=== PATIENT | female | born 1945 | race Caucasian/White ===

== ENCOUNTER → 2018-01-29 09:00 | Outpatient (CLI) | payer MEDICARE, SELFPAY | PROVIDERS: PCP Family Medicine; Visit Provider Urology | DX: C67.9 Malignant neoplasm of bladder, unspecified (principal) | CPT/HCPCS: 99213 ==

== ENCOUNTER 2018-03-23 08:59 | Outpatient (CLI) | payer MEDICARE, SELFPAY ==
[2018-03-23 11:17] LABS: TSH (W/Ref FT4) 0.66 uIU/mL (0.358-3.74)
== END 2018-03-23 09:19 ==
PROVIDERS: PCP Family Medicine; Visit Provider Family Medicine
DX: I10 Essential (primary) hypertension (principal); E03.9 Hypothyroidism, unspecified
CPT/HCPCS: 36415; 84443

== ENCOUNTER 2018-04-13 13:38 | Outpatient (CLI) | payer MEDICARE, SELFPAY ==
[2018-04-13 14:37] LABS: Anion Gap 4.9 mmol/L (3-11); CO2 34.1 mmol/L (21.0-32.0); Chloride 100 mmol/L (98-107); Sodium 139 mmol/L (136-145)
== END 2018-04-13 13:58 ==
PROVIDERS: PCP Family Medicine; Visit Provider Otolaryngology Otolaryngology/Facial Plastic Surgery
DX: R42 Dizziness and giddiness (principal); H93.13 Tinnitus, bilateral
CPT/HCPCS: 36415; 80051

== ENCOUNTER 2018-04-20 10:50 | Day surgery (SDC) | payer MEDICARE, SELFPAY ==
[2018-04-20 11:11] VITALS: BP 115/75; PULSE 75; RESP 16; TEMP 36.7; O2SAT 97
--- NOTE | 2018-04-20 11:13 | HPE_ITS ---
Date of service: 04/20/18 Time of Service: 11:32 Assessment and Plan (1) Urothelial carcinoma of bladder: Current visit: No Status: Chronic For surveillance cystoscopy and possible TURBT History of Present Illness Chief Complaint: History Bladder Cancer Narrative: This is a 73 year old woman who was found to have urothelial cell carcinoma of the bladder. Her initial diagnosis was 12/2017. She presents for surveillance cystoscopy. She has no gross hematuria. She quit smoking @ 25 years ago. Review of Systems Constitutional Denies chills and Denies fever(s) Eyes Denies change in vision ENT Denies sore throat Cardiovascular Denies chest pain and Denies palpitations Respiratory Denies cough and Denies hemoptysis Gastrointestinal Denies nausea and Denies vomiting Musculoskeletal Reports arthralgias Neurologic Denies seizure-like activity and Denies tremor(s) Endocrine Denies palpitations Hematologic/Lymphatic Denies easy bleeding and Denies easy bruising PFSH Family History Mother No problems noted. Father Heart disease Brother No problems noted. Brother Neoplasm Grandfather Aneurysm Heart disease Grandfather No problems noted. Grandmother No problems noted. Grandmother No problems noted. Son No problems noted. Daughter No problems noted. Daughter No problems noted. Medical History Impaired fasting glucose (Chronic 09/17/12) Urothelial carcinoma of bladder (Chronic 01/29/18) Subacute maxillary sinusitis (Chronic 01/20/17) Shoulder pain (Chronic 05/22/04) Increased body mass index (Chronic) Hypothyroidism (Chronic 10/27/08) Hyperlipidemia (Chronic) Gout (Chronic 09/17/12) Essential hypertension (Chronic 04/16/13) Bladder cancer Gout Hyperlipidemia Hypothyroidism Shoulder pain Social History household members: spouse current occupational status: retired pets and animals: Yes pets and animals: dog(s) frequency: 5-6 times per week duration: 15-30 minutes/day Smoking/Tobacco Use Status: Former Tobacco Use how long ago did patient quit smokin YRS AGO alcohol intake: never substance use type: does not use lorena/cheondoism: Pentecostalism special lorena needs: No Surgical History ACHILLOTENOTOMY (~2006) Cholecystectomy (~1967) Colonoscopy - IV Sedation Colonoscopy - MAC (02/12/18) Cystoscopy w/ Bladder Bx (01/19/18) Meds Home Medications Medication Instructions Recorded Confirmed Type triamcinolone acetonide 1 adam TOPICAL BID PRN #3 09/16/12 04/20/18 History docusate sodium [Colace] 100 mg PO DAILY 01/09/18 04/20/18 History omega 0-ltr-rgb-fish oil 1 cap PO DAILY 01/09/18 04/20/18 History citalopram 20 mg tablet 20 mg PO DAILY #90 tab-cap 03/23/18 04/20/18 Rx levothyroxine 150 mcg tablet 150 mcg PO DAILY #90 tab 03/23/18 04/20/18 Rx triamterene-hydrochlorothiazid 1 tab PO DAILY 04/16/18 04/20/18 History Allergies Allergy/AdvReac Type Severity Reaction Status Date / Time Penicillins Allergy Unknown RASH Unverified 04/20/18 11:17 Exam Const General: cooperative Neck Neck: supple Resp Auscultation: diminished lung sounds Cardio Rate: regular rate Rhythm: regular rhythm GI Palpation: soft and no masses Psych Mental Status: mental status grossly normal
[2018-04-20] MEDS: Sulfameth/Trimeth DS TAB 1 TAB PO (11:22)
[2018-04-20] MEDS: Lactated Ringers 1,000 ML 80 ML IV (11:37)
[2018-04-20] MEDS: Lidocaine 2% Jelly 6 ML SYR (12:01)
--- NOTE | 2018-04-20 12:12 | PDOC.DSDIS_ITS ---
Discharge Plan Disposition Patient Disposition: HOME Condition: Stable Discharge Details Reason For Visit: BLADDER CA Attending Provider: Jan Shepard Primary Care Provider: Hoa Vernon Home Meds and New Rx's Prescriptions: No Action citalopram 20 mg tablet 20 mg PO DAILY Qty: 90 RF: 12 levothyroxine [Synthroid] 150 mcg tablet 150 mcg PO DAILY Qty: 90 RF: 4 triamcinolone acetonide 80 GM ointment 1 adam Topical BID PRNQty: 3 RF: 4 docusate sodium [Colace] 100 MG capsule 100 mg PO DAILY RF: 0 omega 2-dru-nzj-fish oil 1 EACH capsule 1 cap PO DAILY RF: 0 triamterene-hydrochlorothiazid 37.5-25 mg Tablet 1 tab PO DAILY RF: 0 Discharge Instructions Additional Instructions: Will need cysto in 6 months - can either be done in office or in OR with MAC ( pt preference) Activity:: Activity as Tolerated Diet:: As Tolerated Discharge Data Discharge Comment: Pt should void prior to discharge DS: Diagnosis Discharge Diagnosis (1) Urothelial carcinoma of bladder: Status: Chronic
[2018-04-20 12:45] VITALS: BP 97/55; PULSE 67; RESP 17; TEMP 36.5; O2SAT 96
--- NOTE | 2018-04-20 13:12 | ROE_ITS ---
DATE OF PROCEDURE: April 20, 2018 PREOPERATIVE DIAGNOSIS: Bladder cancer. POSTOPERATIVE DIAGNOSIS: Same with no recurrence. PROCEDURE: Cystoscopy. SURGEON: Jan Shepard M.D. ANESTHESIA: Monitored Anesthesia Care with local. COMPLICATIONS: None. ESTIMATED BLOOD LOSS: Minimal. HISTORY: This is a 73-year-old woman who has a history of urothelial cell carcinoma of the bladder. Her initial diagnosis occurred in January of 2018. She's had no subsequent occurrence. She presents now for surveillance cystoscopy. OPERATIVE REPORT: The patient was brought to the Operating Room on 04/20/18. After successful induc tion of monitored anesthesia care, she was placed in the dorsal lithotomy position. Her genitalia wa s prepped and draped. Pelvic examination revealed evidence of prolapse, consistent with a rectocele. 2% Xylocaine jelly wa s then instilled into the urethra to act as a local anesthetic. A 22 Mongolian rigid cystoscope was passed through the urethra into the bladder. The bladder was inspec oneyda using the 30-degree lens. The right ureteral orifice appeared normal. The left ureteral orifice showed scarring from a previou s resection. The remainder of the bladder showed some slight hyperemia but no papillary or nodular tumors. These findings were confirmed with re-inspection of the bladder using a 70-degree lens. Based on this examination there is no evidence of tumor recurrence. The bladder was emptied and the cystoscope was removed. The patient tolerated the procedure well with no complications.
== END 2018-04-20 13:26 | disposition home or self-care (01) ==
PROVIDERS: Visit Provider Urology
PROC: 0TBB8ZZ Excision of Bladder, Via Natural or Artificial Opening Endoscopic (ICD-10-PCS; CPT 52000; principal; 2018-04-20 12:00)
DX: C67.6 Malignant neoplasm of ureteric orifice (principal)
CPT/HCPCS: 52000; NC

== ENCOUNTER 2018-11-09 11:26 | Outpatient (CLI) | payer MEDICARE, SELFPAY ==
[2018-11-09 12:54] LABS: Potassium 4.2 mmol/L (3.5-5.1)
== END 2018-11-09 11:46 ==
PROVIDERS: PCP Family Medicine; Visit Provider Otolaryngology Otolaryngology/Facial Plastic Surgery
DX: H81.01 Meniere's disease, right ear (principal); E87.6 Hypokalemia; T50.2X5A Adverse effect of carbonic-anhydrase inhibitors, benzothiadiazides and other diuretics, initial encounter
CPT/HCPCS: 36415; 84132

== ENCOUNTER → 2019-01-12 08:55 | Outpatient (BNVA) | payer MEDICARE, SELFPAY | PROVIDERS: PCP Family Medicine; Visit Provider Urology | DX: Z12.6 Encounter for screening for malignant neoplasm of bladder (principal); Z85.51 Personal history of malignant neoplasm of bladder | CPT/HCPCS: 52000; 99212 ==

== ENCOUNTER 2019-03-22 02:34 | Outpatient (CLI) | payer MEDICARE, SELFPAY ==
[2019-03-22 13:07] LABS: TSH (W/Ref FT4) 0.56 uIU/mL (0.36-3.74)
== END 2019-03-22 02:54 ==
PROVIDERS: PCP Family Medicine; Visit Provider Family Medicine
DX: E03.9 Hypothyroidism, unspecified (principal)
CPT/HCPCS: 36415; 84443

== ENCOUNTER 2019-05-18 00:54 | Outpatient (CLI) | payer MEDICARE, SELFPAY ==
[2019-05-18 10:03] LABS: CREATININE 1.11 mg/dL (0.55-1.02); Estimated GFR 47.79 (mL/min/1.73m2)
[2019-05-18] MEDS: Normal Saline Flush 10 ML SYR IVP (10:13)
[2019-05-18] MEDS: Gadoterate meglumine 20 ML VIAL 18 ML IVP (10:14)
--- NOTE | 2019-05-18 10:45 | DI.MRI_ITS ---
EXAM: MR IAC BRAIN WO/W CLINICAL HISTORY: RT HEARING LOSS H91.8X1, TINNITUS OF BOTH EARS H93.13, VERTIGO R42. TECHNIQUE: Multiplanar multisequence MRI was performed. Additional thin T1 pre and post gadolinium axial and coronal sequences through the region of the internal auditory canals were performed in jorge tion to the routine sequences. COMPARISON: SINUS CT WITHOUT CONTRAST from 12/05/2017 FINDINGS: The exam is limited by patient motion. Multiple repeats were attempted. No intracranial hemorrhage, mass or infarct is seen. There is mild atrophy. There are no significant white matter changes. Th e vascular flow voids appear intact. Sinuses and mastoid air cells appear clear. There are no abnor mal areas of enhancement. There is no evidence of an acoustic neuroma or other CP angle mass. IMPRESSION: Somewhat limited exam due to patient motion. No abnormality in the region of the internal auditory canals is detected.
== END 2019-05-18 01:14 ==
PROVIDERS: PCP Family Medicine; Visit Provider Otolaryngology Otolaryngology/Facial Plastic Surgery
DX: H91.8X1 Other specified hearing loss, right ear (principal); H93.13 Tinnitus, bilateral; R42 Dizziness and giddiness; Z13.89 Encounter for screening for other disorder
CPT/HCPCS: 70553; 82565

== ENCOUNTER → 2019-07-06 10:06 | Outpatient (BNVA) | payer MEDICARE, SELFPAY | PROVIDERS: PCP Family Medicine; Referring Provider Family Medicine; Visit Provider Urology | DX: C67.9 Malignant neoplasm of bladder, unspecified (principal) | CPT/HCPCS: 52000; 99213 ==

== ENCOUNTER 2019-08-05 07:28 | Outpatient (CLI) | payer MEDICARE, SELFPAY ==
--- NOTE | 2019-08-05 12:45 | DI.RAD_ITS ---
EXAM: XR LUMBAR SPINE COMPLETE INDICATION: ACUTE LEFT-SIDED LOW BACK PAIN, M54.5. COMPARISON: No exams were available for comparison TECHNIQUE: 2D digital imaging was performed. FINDINGS: There are 5 lumbar-type vertebral bodies. No spondylolisthesis is seen. There is grade 1 pseudospon dylolisthesis of L4 on L5. There are endplate osteophytes throughout the lumbar spine. Disc space n arrowing is seen at T12-L1, L1-L2, and L5-S1. There are degenerative changes of the facets throughou t the lumbar spine. No acute fracture or subluxation is present. Calcification of the abdominal aor ta is noted. IMPRESSION: Degenerative changes in the lumbar spine as described above. Grade 1 pseudospondylolisthesis of L4 o n L5.
--- NOTE | 2019-08-05 12:45 | DI.RAD_ITS ---
EXAM: XR HIP LT COMPLETE AND AP PELVIS INDICATION: LT HIP PAIN, M25.552. COMPARISON: No exams were available for comparison TECHNIQUE: 2D digital imaging was performed. FINDINGS: Left hip joint space is well maintained. The bones are normally mineralized and intact. There is mi ld narrowing of the right hip joint space. The sacroiliac joints and symphysis pubis are intact. Th e soft tissues are unremarkable. IMPRESSION: Unremarkable left hip.
== END 2019-08-05 07:48 ==
PROVIDERS: PCP Family Medicine; Visit Provider Family Medicine
DX: M54.5 Low back pain (principal); M25.552 Pain in left hip; M51.37 Other intervertebral disc degeneration, lumbosacral region; M47.817 Spondylosis without myelopathy or radiculopathy, lumbosacral region
CPT/HCPCS: 72110; 73502

== ENCOUNTER 2019-11-23 05:15 | Outpatient (CLI) | payer MEDICARE, SELFPAY ==
[2019-11-23 10:22] LABS: Potassium 4.2 mmol/L (3.5-5.1)
== END 2019-11-23 05:35 ==
PROVIDERS: PCP Family Medicine; Visit Provider Otolaryngology Otolaryngology/Facial Plastic Surgery
DX: E87.6 Hypokalemia (principal); H81.01 Meniere's disease, right ear; T50.2X5A Adverse effect of carbonic-anhydrase inhibitors, benzothiadiazides and other diuretics, initial encounter
CPT/HCPCS: 36415; 84132

== ENCOUNTER 2019-12-29 22:16 | Outpatient (REF) | payer MEDICARE, SELFPAY ==
[2019-12-29 22:42] LABS: Bilirubin Negative (Negative); Blood Moderate (Negative); Clarity Clear (Clear); Glucose Negative (Negative); Ketones Negative (Negative); Leukocyte Esterase Trace (Negative); Nitrite Negative (Negative); Urobilinogen 0.2 EU/dL (Up TO 0.2)
[2019-12-29 22:47] LABS: Bacteria Negative HPF (Negative); C & S Indicated? Yes; Casts Negative LPF (Negative); Crystals Negative HPF (Negative); Epithelial Cells Few HPF (Negative); Mucus Negative (Negative); RBC 20-50 HPF (0-2)
== END 2019-12-29 22:36 ==
LOC: LBN 22:16
PROVIDERS: PCP Family Medicine; Visit Provider Family Medicine
DX: R30.0 Dysuria (principal)
CPT/HCPCS: 81003; 81015; 87086

== ENCOUNTER → 2020-01-17 11:01 | Outpatient (BNVA) | payer MEDICARE, SELFPAY | PROVIDERS: PCP Family Medicine; Referring Provider Family Medicine; Visit Provider Urology | DX: C67.9 Malignant neoplasm of bladder, unspecified (principal); I10 Essential (primary) hypertension; R35.0 Frequency of micturition | CPT/HCPCS: 52000; 81003; 99212 ==

== ENCOUNTER 2020-02-18 10:13 | Outpatient (CLI) | payer MEDICARE, SELFPAY ==
--- NOTE | 2020-02-18 10:00 | DI.RAD_ITS ---
EXAM: XR KNEE RT 4V AP,LAT,JERMAIN,PAT CLINICAL HISTORY: pain TECHNIQUE: COMPARISON: No exams were available for comparison FINDINGS: Four views were obtained. There is severe narrowing of the cartilaginous joint space of the medial t ibiofemoral joint. Slight marginal osteophyte formation noted at multiple sites. No other significa nt bony or soft tissue abnormality seen. IMPRESSION: DJD predominantly involving medial tibiofemoral joint. RADIATION DOSE DELIVERED: Total DLP
== END 2020-02-18 10:33 ==
PROVIDERS: PCP Family Medicine; Referring Provider Family Medicine; Visit Provider Student in an Organized Health Care Education/Training Program
DX: M17.11 Unilateral primary osteoarthritis, right knee (principal); M25.561 Pain in right knee; I10 Essential (primary) hypertension
CPT/HCPCS: 20610; 99203; 99214; 73564; J1040

== ENCOUNTER 2020-03-16 02:08 | Outpatient (CLI) | payer MEDICARE, SELFPAY ==
--- NOTE | 2020-03-16 06:30 | DI.MRI_ITS ---
EXAM: MR LUMBAR SPINE WO CLINICAL HISTORY: back pain, lumbar radiculopathy,m54.16. TECHNIQUE: Multiplanar multisequence MRI of the Lumbar spine was performed. COMPARISON: CT ABD/PELVIS WO W CONTRAST from 01/09/2018 CR XR LUMBAR SPINE COMPLETE from 08/05/2019 FINDINGS: There is patient motion artifact. Bones: The last intervertebral disc space is designated the L5/S1 level for the numbering purpose of this examination. The vertebral body heights are well maintained. Grade 1 pseudo spondylolisthesis of L4 on L5. Mild degenerative endplate signal changes are present at multiple levels in the lumbar s pine. Cord: The conus tip ends at the L1 level. It is of normal size and signal intensity. T12-L1: No disc herniations or bulges are present. No central spinal canal or neural foraminal stenos is. L1-2: No disc herniations or bulges are present. No central spinal canal or neural foraminal stenosis . L2-3: No disc herniations or bulges are present. No central spinal canal or neural foraminal stenosis .Mild hypertrophic changes of the facets. L3-4: There is a mild disc bulge. Hypertrophic changes of the facets and ligamentum flavum are prese nt. There is mild narrowing of the central spinal canal.No right neural foraminal stenosis. Mild le ft neural foraminal stenosis. L4-5: There is a large left paracentral disc herniation which extrudes posterior to the L4 vertebral body. There is left lateral recess stenosis. It compresses the left L4 nerve root. There is marked central spinal canal stenosis.Mild bilateral neural foraminal stenosis is present. There are degene rative changes of the facets with mild hypertrophy of the ligamentum flavum. L5-S1: Mild diffuse disc bulge. No significant central spinal canal stenosis. Mild bilateral neural foraminal narrowing. Soft tissues: The visualized SI joints and sacrum are well maintained. The paraspinal soft tissues ar e unremarkable. IMPRESSION: 1. Large left paracentral disc herniation at L4-L5 with extrusion posterior to the L4 vertebral body. There is left lateral recess stenosis compressing the left L4 nerve root. This also contributes to cause marked central spinal canal stenosis. 2. Multilevel degenerative changes in the lumbar spine causing central spinal canal and neural forami nal stenosis as described in detail above. DATA REPOSITORY:
== END 2020-03-16 02:28 ==
PROVIDERS: PCP Family Medicine; Visit Provider Student in an Organized Health Care Education/Training Program
DX: M51.16 Intervertebral disc disorders with radiculopathy, lumbar region (principal); M48.061 Spinal stenosis, lumbar region without neurogenic claudication
CPT/HCPCS: 72148

== ENCOUNTER → 2020-03-30 07:57 | Outpatient (BNVA) | payer MEDICARE, SELFPAY | PROVIDERS: PCP Family Medicine; Referring Provider Family Medicine; Visit Provider Urology | DX: G83.4 Cauda equina syndrome (principal); I10 Essential (primary) hypertension; R33.8 Other retention of urine | CPT/HCPCS: 99213 ==

== ENCOUNTER → 2020-04-06 09:25 | Outpatient (BNVA) | payer MEDICARE, SELFPAY | PROVIDERS: PCP Family Medicine; Referring Provider Family Medicine; Visit Provider Urology | DX: G83.4 Cauda equina syndrome (principal); R33.8 Other retention of urine; I10 Essential (primary) hypertension; Z48.02 Encounter for removal of sutures | CPT/HCPCS: 99212 ==

== ENCOUNTER 2020-04-07 04:10 | Outpatient (CLI) | payer MEDICARE, SELFPAY ==
[2020-04-07 11:27] LABS: TSH (W/Ref FT4) 0.88 uIU/mL (0.36-3.74)
== END 2020-04-07 04:30 ==
PROVIDERS: PCP Family Medicine; Visit Provider Family Medicine
DX: E03.9 Hypothyroidism, unspecified (principal)
CPT/HCPCS: 36415; 84443

== ENCOUNTER → 2020-04-14 10:26 | Outpatient (BNVA) | payer MEDICARE, SELFPAY | PROVIDERS: PCP Family Medicine; Visit Provider Student in an Organized Health Care Education/Training Program | DX: M25.561 Pain in right knee (principal); M17.11 Unilateral primary osteoarthritis, right knee; G57.02 Lesion of sciatic nerve, left lower limb; G83.4 Cauda equina syndrome; I10 Essential (primary) hypertension | CPT/HCPCS: 99213 ==

== ENCOUNTER → 2020-04-18 09:27 | Outpatient (BNVA) | payer MEDICARE, SELFPAY | PROVIDERS: PCP Family Medicine; Visit Provider Urology | DX: G83.4 Cauda equina syndrome (principal); R33.8 Other retention of urine | CPT/HCPCS: 99213 ==

== ENCOUNTER 2020-05-23 00:27 | Outpatient (CLI) | payer MEDICARE, SELFPAY ==
--- NOTE | 2020-05-23 06:45 | DI.US_ITS ---
EXAM: US AAA DIAGNOSTIC CLINICAL HISTORY: AAA, lower abd by outside CT Scan,US recommended,I71.4 TECHNIQUE: Ultrasound performed using standard protocol. COMPARISON: No exams were available for comparison FINDINGS: Limited ultrasound was performed to evaluate abdominal aorta. Incidental note is made of a 14 millim eter in diameter septated left hepatic lobe cyst. Abdominal aorta is within normal limits in diameter, maximal diameter of the mid to distal aorta is a bout 2.5 cm. Common iliac arteries are within normal limits in diameter bilaterally at 13 millimeter s. IMPRESSION: No evidence of an abdominal aortic aneurysm. DATA REPOSITORY:
== END 2020-05-23 00:47 ==
PROVIDERS: PCP Family Medicine; Visit Provider Family Medicine
DX: Z87.891 Personal history of nicotine dependence; R93.5 Abnormal findings on diagnostic imaging of other abdominal regions, including retroperitoneum
CPT/HCPCS: 76775

== ENCOUNTER → 2020-07-14 09:08 | Outpatient (BNVA) | payer MEDICARE, SELFPAY | PROVIDERS: PCP Family Medicine; Referring Provider Family Medicine; Visit Provider Physician Assistant | DX: M17.11 Unilateral primary osteoarthritis, right knee (principal) | CPT/HCPCS: 20610; 99212; J1040 ==

== ENCOUNTER 2020-10-13 09:54 | Outpatient (CLI) | payer MEDICARE, SELFPAY ==
--- NOTE | 2020-10-13 09:15 | DI.RAD_ITS ---
EXAM: XR KNEE LT 4V AP,LAT,JERMAIN,PAT CLINICAL HISTORY: left knee pain. TECHNIQUE: 2D digital imaging was performed. COMPARISON: CR XR KNEE RT 4V AP,LAT,JERMAIN,PAT from 02/18/2020 FINDINGS: BONES: No acute fracture is present. No bony destructive lesion is seen. Osteopenia. JOINTS: There is mild to moderate narrowing of the medial femoral tibial joint and mild periarticular spurring. The lateral femoral tibial joint and patellofemoral joint are well maintained. No joint effusion is seen. SOFT TISSUE: Normal. IMPRESSION: Mild to moderate degenerative changes of the medial femoral tibial joint. DATA REPOSITORY: RADIATION DOSE DELIVERED:
== END 2020-10-13 09:55 | disposition home or self-care (01) ==
LOC: DIORS 09:54
PROVIDERS: PCP Family Medicine; Referring Provider Family Medicine; Visit Provider Student in an Organized Health Care Education/Training Program
DX: M17.12 Unilateral primary osteoarthritis, left knee (principal); M17.11 Unilateral primary osteoarthritis, right knee; M85.88 Other specified disorders of bone density and structure, other site
CPT/HCPCS: 20610; 73564; J1040

== ENCOUNTER → 2021-01-19 10:21 | Outpatient (BNVA) | payer MEDICARE, SELFPAY | PROVIDERS: PCP Family Medicine; Referring Provider Family Medicine; Visit Provider Urology | DX: N39.0 Urinary tract infection, site not specified (principal); C67.9 Malignant neoplasm of bladder, unspecified | CPT/HCPCS: 81003; 99213 ==

== ENCOUNTER 2021-01-19 14:45 | Outpatient (REF) | payer MEDICARE, SELFPAY | END 2021-01-19 14:46 | disposition home or self-care (01) | LOC: LBN 14:45 | PROVIDERS: PCP Family Medicine; Visit Provider Urology | DX: N39.0 Urinary tract infection, site not specified (principal) | CPT/HCPCS: 87077; 87086; 87186 ==

== ENCOUNTER → 2021-01-26 11:07 | Outpatient (BNVA) | payer MEDICARE, SELFPAY | PROVIDERS: PCP Family Medicine; Referring Provider Family Medicine; Visit Provider Urology | DX: C67.9 Malignant neoplasm of bladder, unspecified (principal); Z87.440 Personal history of urinary (tract) infections | CPT/HCPCS: 52000; 81003 ==

== ENCOUNTER 2021-04-16 09:59 | Outpatient (REF) | payer MEDICARE, SELFPAY ==
[2021-04-16 14:04] LABS: TSH (W/Ref FT4) 1.97 uIU/mL (0.36-3.74)
== END 2021-04-16 10:00 | disposition home or self-care (01) ==
LOC: LBN 09:59
PROVIDERS: PCP Family Medicine; Visit Provider Family Medicine
DX: E03.9 Hypothyroidism, unspecified (principal)
CPT/HCPCS: 84443

== ENCOUNTER 2021-04-24 02:29 | Outpatient (CLI) | payer MEDICARE, SELFPAY | END 2021-04-24 02:30 | disposition home or self-care (01) | LOC: LBO 02:29 | PROVIDERS: PCP Family Medicine; Visit Provider Otolaryngology Otolaryngology/Facial Plastic Surgery | DX: H81.01 Meniere's disease, right ear (principal); H93.13 Tinnitus, bilateral | CPT/HCPCS: 36415; 84132 ==

== ENCOUNTER 2021-06-04 17:48 | Outpatient (REF) | payer MEDICARE, SELFPAY | END 2021-06-04 17:49 | disposition home or self-care (01) | LOC: NCHCN 17:48 | PROVIDERS: PCP Family Medicine; Visit Provider Family Medicine | DX: R31.9 Hematuria, unspecified (principal) | CPT/HCPCS: 87077; 87086; 87186 ==

== ENCOUNTER 2021-10-01 13:58 | Outpatient (REF) | payer MEDICARE, SELFPAY | END 2021-10-01 13:59 | disposition home or self-care (01) | LOC: LBN 13:58 | PROVIDERS: PCP Family Medicine; Visit Provider Family Medicine | DX: R31.9 Hematuria, unspecified (principal) | CPT/HCPCS: 87077; 87086; 87186 ==

== ENCOUNTER 2022-02-21 15:47 | Outpatient (REF) | payer MEDICARE, SELFPAY | END 2022-02-21 15:48 | disposition home or self-care (01) | LOC: LBN 15:47 | PROVIDERS: PCP Family Medicine; Visit Provider Nurse Practitioner Family | DX: N39.0 Urinary tract infection, site not specified (principal) | CPT/HCPCS: 87077; 87086; 87186 ==

== ENCOUNTER → 2022-03-08 09:30 | Outpatient (BNVA) | payer MEDICARE, SELFPAY | PROVIDERS: PCP Family Medicine; Referring Provider Family Medicine; Visit Provider Urology | DX: C67.9 Malignant neoplasm of bladder, unspecified (principal); R31.9 Hematuria, unspecified | CPT/HCPCS: 81003; 99214 ==

== ENCOUNTER → 2022-05-31 08:00 | Outpatient (BNVA) | payer MEDICARE, SELFPAY | PROVIDERS: PCP Family Medicine; Referring Provider Family Medicine | DX: M17.11 Unilateral primary osteoarthritis, right knee (principal); M17.12 Unilateral primary osteoarthritis, left knee | CPT/HCPCS: 20610; J1040 ==

== ENCOUNTER 2022-12-09 04:22 | Outpatient (CLI) | payer MEDICARE, SELFPAY ==
[2022-12-09 14:44] LABS: ALT 60 U/L (14-59); AST 32 U/L (15-37); Albumin 3.7 g/dL (3.4-5.0); Alkaline Phosphatase 51 U/L (46-116); BUN 27 mg/dL (7-18); Bilirubin, Total 0.6 mg/dL (0.2-1.0); CREATININE 1.1 mg/dL (0.55-1.02); Calcium 8.9 mg/dL (8.5-10.1); Chloride 101 mmol/L (98-107); Estimated GFR 51.11 (mL/min/1.73m2); Glucose 99 mg/dL (74-106); Potassium 3.8 mmol/L (3.5-5.1); Sodium 137 mmol/L (136-145); TSH (W/Ref FT4) 0.97 uIU/mL (0.36-3.74); Total Protein 7.1 g/dL (6.4-8.2)
== END 2022-12-09 04:23 | disposition home or self-care (01) ==
LOC: LBO 04:22
PROVIDERS: PCP Family Medicine; Visit Provider Family Medicine
DX: E03.9 Hypothyroidism, unspecified (principal); E78.5 Hyperlipidemia, unspecified; R26.89 Other abnormalities of gait and mobility
CPT/HCPCS: 36415; 80053; 84443

== ENCOUNTER 2022-12-30 15:46 | Outpatient (CLI) | payer MEDICARE, SELFPAY ==
--- NOTE | 2022-12-30 10:15 | DI.RAD_ITS ---
Exam(s) XR LUMBAR SPINE COMPLETE EXAM: XR LUMBAR SPINE COMPLETE CLINICAL HISTORY: l sciatica,lt hip pain, piriformis syndrome,g57.00. TECHNIQUE: 2D digital imaging was performed. COMPARISON: CR XR LUMBAR SPINE COMPLETE from 08/05/2019 FINDINGS: Five views: There has been interval surgery with placement of posterior fusion rods at L4-5 level secured by intr a pedicular screws bilaterally at these 2 levels. No hardware fracture nor loosening evident in the relationship of the screws relative to the superior endplates is satisfactory at both levels. The amount of anterolisthesis L4 upon L5 appears unchanged as does the amount of disc space narrowing at this level. Advanced disc space narrowing at L5-S1 level is also again noted, unchanged and with out evidence of listhesis at this level. Some disc space narrowing at L3-4 level also again noted po steriorly at this disc space. SI joints appear unremarkable. IMPRESSION: Interval fusion hardware placement at L4-5, as described above. DATA REPOSITORY: RADIATION DOSE DELIVERED:
--- NOTE | 2022-12-30 10:15 | DI.RAD_ITS ---
Exam(s) XR HIP LT COMPLETE AP PELVIS EXAM: XR HIP LT COMPLETE AP PELVIS CLINICAL HISTORY: l hip pain, piriformis syndrome, m25.552. TECHNIQUE: 2D digital imaging was performed. COMPARISON: No exams were available for comparison FINDINGS: Four views. No evidence of pelvic nor hip fracture. Fusion hardware noted in the lower lower lumbar spine. No o bvious degenerative changes in the left hip. No evidence of avascular necrosis. Osteitis symphysis pubis noted. SI joints appear unremarkable. IMPRESSION: No significant osseous findings in the left hip. DATA REPOSITORY: RADIATION DOSE DELIVERED:
== END 2022-12-30 16:06 ==
LOC: DI 15:48
PROVIDERS: PCP Family Medicine; Visit Provider Family Medicine
DX: G57.00 Lesion of sciatic nerve, unspecified lower limb (principal); M25.552 Pain in left hip; M51.17 Intervertebral disc disorders with radiculopathy, lumbosacral region; Z98.1 Arthrodesis status
CPT/HCPCS: 72110; 73502

== ENCOUNTER → 2023-03-07 09:45 | Outpatient (BNVA) | payer MEDICARE, SELFPAY | PROVIDERS: PCP Family Medicine; Visit Provider Urology | DX: C67.9 Malignant neoplasm of bladder, unspecified (principal); R78.81 Bacteremia; Z87.440 Personal history of urinary (tract) infections | CPT/HCPCS: 81003; 99213 ==

== ENCOUNTER 2023-03-07 14:41 | Outpatient (REF) | payer MEDICARE, SELFPAY | END 2023-03-07 14:42 | disposition home or self-care (01) | LOC: LBN 14:41 | PROVIDERS: PCP Family Medicine; Visit Provider Urology | DX: N39.0 Urinary tract infection, site not specified (principal); R82.79 Other abnormal findings on microbiological examination of urine | CPT/HCPCS: 87077; 87086; 87186 ==

== ENCOUNTER 2023-12-29 11:40 | Outpatient (CLI) | payer MEDICARE, SELFPAY ==
[2023-12-29 16:19] LABS: ALT 54 U/L (14-59); AST 33 U/L (15-37); Albumin 3.7 g/dL (3.4-5.0); Alkaline Phosphatase 48 U/L (46-116); Anion Gap 7.4 mmol/L (3-11); BUN 35 mg/dL (7-18); Bilirubin, Total 0.51 mg/dL (0.2-1.0); CO2 29.6 mmol/L (21.0-32.0); CREATININE 1.3 mg/dL (0.55-1.02); Calcium 9.2 mg/dL (8.5-10.1); Chloride 103 mmol/L (98-107); Estimated GFR 41.57 (mL/min/1.73m2); Glucose 93 mg/dL (74-106); Sodium 140 mmol/L (136-145); TSH (W/Ref FT4) 0.76 uIU/mL (0.36-3.74); Total Protein 6.9 g/dL (6.4-8.2)
== END 2023-12-29 11:41 | disposition home or self-care (01) ==
LOC: LBO 11:40
PROVIDERS: PCP Family Medicine; Referring Provider Family Medicine; Visit Provider Family Medicine
DX: I10 Essential (primary) hypertension (principal); E03.9 Hypothyroidism, unspecified
CPT/HCPCS: 36415; 80053; 84443

== ENCOUNTER → 2024-03-19 09:33 | Outpatient (BNVA) | payer MEDICARE, SELFPAY | PROVIDERS: PCP Family Medicine; Visit Provider Urology | DX: N39.0 Urinary tract infection, site not specified (principal); R39.15 Urgency of urination; I10 Essential (primary) hypertension; R31.9 Hematuria, unspecified; C67.9 Malignant neoplasm of bladder, unspecified | CPT/HCPCS: 81003; 99213 ==

== ENCOUNTER 2024-03-19 12:00 | Outpatient (REF) | payer MEDICARE, SELFPAY | END 2024-03-19 12:01 | disposition home or self-care (01) | LOC: LBN 12:00 | PROVIDERS: PCP Family Medicine; Visit Provider Urology | DX: R39.15 Urgency of urination (principal); I10 Essential (primary) hypertension; R82.89 Other abnormal findings on cytological and histological examination of urine | CPT/HCPCS: 87077; 87086; 87186 ==

== ENCOUNTER 2024-04-28 14:51 | Outpatient (REF) | payer MEDICARE, SELFPAY ==
[2024-04-28 15:37] LABS: Bilirubin Negative (Negative); Blood Trace-intact (Negative); Clarity Clear (Clear); Glucose Negative (Negative); Ketones Negative (Negative); Leukocyte Esterase Negative (Negative); Nitrite Negative (Negative); Urobilinogen 0.2 mg/dL (Up to 0.2); pH 6.5 (5-8)
[2024-04-28 16:24] LABS: Bacteria Few HPF (Negative); C & S Indicated? C&S Done As Ordered; Casts 0-2 Coarse Granular LPF (Negative); Crystals Negative HPF (Negative); Epithelial Cells Few HPF (Negative); Mucus Negative (Negative); RBC 0-2 HPF (0-2)
== END 2024-04-28 14:52 | disposition home or self-care (01) ==
LOC: LBN 14:51
PROVIDERS: PCP Family Medicine; Visit Provider Nurse Practitioner Gerontology
DX: R30.0 Dysuria (principal)
CPT/HCPCS: 87077; 81003; 81015; 87086; 87186

== ENCOUNTER 2024-10-29 15:20 | Outpatient (CLI) | payer MEDICARE, SELFPAY ==
--- NOTE | 2024-10-29 14:45 | DI.RAD_ITS ---
Exam(s) XR CHEST 2V PA LATERAL EXAM: XR CHEST 2V PA LATERAL CLINICAL HISTORY: R05.9 Cough, evaluate pna. TECHNIQUE: 2D digital imaging was performed. COMPARISON: No exams were available for comparison FINDINGS: 2 views: Heart size is normal. The mediastinum is not widened. Lungs are clear. No infiltrates nor pleural effusions. IMPRESSION: No acute pulmonary findings. DATA REPOSITORY: RADIATION DOSE DELIVERED:
== END 2024-10-29 15:40 ==
LOC: DI 15:21
PROVIDERS: PCP Family Medicine; Visit Provider Nurse Practitioner Family
DX: R05.9 Cough, unspecified (principal)
CPT/HCPCS: 71046

== ENCOUNTER 2024-11-18 03:15 | Outpatient (CLI) | payer MEDICARE, SELFPAY ==
[2024-11-18 12:06] LABS: HGB 14.9 g/dL (11.2-15.7); MCH 32.6 pg (27.0-33.0); MCHC 33.1 % (32.0-36.0); MCV 99 fL (80-95); MPV 10.4 fL (8.0-11.0); Platelet Count 165 10^3/uL (130-400); RBC 4.57 10^6/uL (3.93-5.22); RDW 13.5 % (11.7-14.6); WBC 5.96 10^3/uL (4.4-10.8)
[2024-11-18 12:41] LABS: Hemoglobin A1C 5.4 % (<5.7)
[2024-11-18 12:46] LABS: ALT 51 U/L (14-59); AST 24 U/L (15-37); Albumin 3.7 g/dL (3.4-5.0); Alkaline Phosphatase 38 U/L (46-116); Anion Gap 5.9 mmol/L (3-11); BUN 35 mg/dL (7-18); Bilirubin, Total 0.7 mg/dL (0.2-1.0); CO2 33.1 mmol/L (21.0-32.0); CREATININE 1.3 mg/dL (0.55-1.02); Calcium 9.3 mg/dL (8.5-10.1); Chloride 101 mmol/L (98-107); Estimated GFR 41.31 (mL/min/1.73m2); Glucose 89 mg/dL (74-106); Potassium 3.8 mmol/L (3.5-5.1); Sodium 140 mmol/L (136-145); TSH (W/Ref FT4) 10.33 uIU/mL (0.36-3.74); Total Protein 6.7 g/dL (6.4-8.2); Vitamin B12 480 pg/mL (193-986); Vitamin D 25 Total 56 ng/mL (30-100)
[2024-11-18 13:11] LABS: FREE T4 0.75 ng/dL (0.76-1.46)
== END 2024-11-18 03:16 | disposition home or self-care (01) ==
LOC: LOS 03:15
PROVIDERS: PCP Family Medicine; Visit Provider Family Medicine
DX: E03.9 Hypothyroidism, unspecified (principal); I10 Essential (primary) hypertension; M81.0 Age-related osteoporosis without current pathological fracture; B34.9 Viral infection, unspecified; E11.9 Type 2 diabetes mellitus without complications; G62.9 Polyneuropathy, unspecified
CPT/HCPCS: 36415; 80053; 82306; 85027; 82607; 83036; 84439; 84443

== ENCOUNTER → 2025-03-18 10:15 | Outpatient (BNVA) | payer MEDICARE, SELFPAY | PROVIDERS: PCP Family Medicine; Referring Provider Family Medicine; Visit Provider Urology | DX: C67.9 Malignant neoplasm of bladder, unspecified (principal); R31.29 Other microscopic hematuria | CPT/HCPCS: 99213; 81002 ==

== ENCOUNTER 2025-05-04 01:56 | Outpatient (CLI) | payer MEDICARE, SELFPAY ==
[2025-05-04 14:24] LABS: TSH (W/Ref FT4) 0.52 uIU/mL (0.55-4.78)
== END 2025-05-04 01:57 | disposition home or self-care (01) ==
LOC: LOS 01:56
PROVIDERS: PCP Family Medicine; Visit Provider Family Medicine
DX: E03.9 Hypothyroidism, unspecified (principal)
CPT/HCPCS: 36415; 84439; 84443